=== PATIENT | male | born 1990 | race Caucasian/White ===

== ENCOUNTER 2017-01-29 17:05 | Inpatient (IN) | payer BC, OTHER ==
[~2017-01-29] VITALS: Ht 175.3 cm; Wt 74.4 kg
[2017-01-30 01:30] LABS: *AMPHETAMINE, URINE NEGATIVE (NEGATIVE); *BARBITURATE, URINE NEGATIVE (NEGATIVE); *CANNABINOID, URINE POSITIVE (NEGATIVE); *COCCAINE, URINE POSITIVE (NEGATIVE); *OPIATE, URINE POSITIVE (NEGATIVE); *PHENCYCLIDINE SCREEN,URINE NEGATIVE (NEGATIVE)
--- NOTE | 2017-01-30 01:45 | NUR ---
ADMISSION NOTE Pt arrived ambulatory to the [facility] third floor (accompanied by [facility] staff) on 01/30/17 at approximately 0058. Pt is a 26 y/o male being admitted for Benzodiazepine, Opiate, ETOH, and Marijuana dependence and use. Pt is a/o x 4 with no changes in LOC. Pt reported having NKA. Pt weighs 164 pounds and stands at 5 feet 9 inches. Pt denies having any past medical history. Pt reported having a primary care physician by the name Dr. Mohan but denies having a psych doctor. Pt reported he's been using Heroin for the past 6 years; and he currently uses about 1 gram every day. Last dose of Heroin was last night ( 01/29/17) and pt reported using 0.75 gram (IV). Pt has been drinking heavily for an unknown time and stated " I usually drink a few cups of whiskey, but that's not everyday. Some days it could be more or less. I've been drinking a lot more this run which has been for about 3 months." Pt consumed 1 cup of whiskey yesterday (01/29/17). Pt has been occasionally using Xanax for the past few weeks. Pt stated " I don't really use them. Through out this entire time, I've probably had 6 mg. I had 1 mg last night (01/29/17). Pt stated " I smoke marijuana here and there, but not everyday. I smoke like 1 gram on the days I do smoke. I smoked a joint before coming here." Pt didn't arrive with any medications. Pt reported being to multiple treatment centers. His most recent was at a sober living about 9 months ago. Pt smokes about 1 and a half packs of cigarettes a day. Upon assessment pt is mildly intoxicated, but coherent, friendly, and cooperative. Pt's breathing is even and unlabored. No SOB noted or reported. Pt's skin is dry and intact. Vital signs upon preadmission: BP: 130/76 HR:68 T:97.9 R:18 Oxygen Saturation: 96% Pain: 0/10 COW:3 and CIWA: 3. Pt encouraged to notify staff of any changes in condition or of any concerns. Pt verbalized an understanding. Will continue to monitor.
[2017-01-30] MEDS ORDERED: IBUPROFEN 400 MG TABLET PO PRN (02:00)
[2017-01-30] MEDS ORDERED: DIAZEPAM 10 MG TABLET PO PRN ×2 (02:00)
[2017-01-30] MEDS ORDERED: diphenhydrAMINE 50 MG CAPSULE PO PRN (02:00)
[2017-01-30] MEDS ORDERED: LOPERAMIDE HCL 2 MG CAPSULE PO PRN ×2 (02:00)
[2017-01-30] MEDS ORDERED: DIAZEPAM 5 MG TABLET PO PRN (02:00)
[2017-01-30] MEDS ORDERED: ONDANSETRON ODT 4 MG TAB.RAPDIS SL PRN (02:00)
[2017-01-30] MEDS ORDERED: MAG HYDROX/AL HYDROX/SIMETH 30 ML LIQUID UDC PO PRN (02:00)
[2017-01-30] MEDS ORDERED: MIRALAX 17 GM POWD.PACK PO PRN (02:00)
[2017-01-30] MEDS ORDERED: MAGNESIUM HYDROXIDE 30 ML LIQUID UDC PO PRN (02:00)
[2017-01-30] MEDS ORDERED: ACETAMINOPHEN 325 MG TABLET PO PRN (02:00)
[2017-01-30] MEDS ORDERED: LORAZEPAM 2 MG/1 ML VIAL IM PRN (02:00)
[2017-01-30] MEDS ORDERED: ONDANSETRON 4 MG/2 ML VIAL IM PRN (02:00)
[2017-01-30] MEDS ORDERED: DICYCLOMINE HCL 20 MG TABLET PO PRN (02:00)
[2017-01-30] MEDS ORDERED: BUPRENORPHINE HCL 2 MG TAB.SUBL SL PRN (02:00)
[2017-01-30 04:00] VITALS: BP 105/88
--- NOTE | 2017-01-30 07:08 | NUR ---
END OF SHIFT NOTE Pt is a 26 y/o male admitted for Heroin, ETOH, Xanax, and Marijuana use and dependence. Pt has NKA and denies any PMH. Pt is not on a taper at this time but has PRN medications available for any discomfort. Pt didn't receive any PRNS during the shift. Last COW:1 and CIWA:0 (0400). Pt slept for a total of 5 hours. Pt is currently sleeping in bed with no signs of discomfort/distress noted. Breathing is even and unlabored. All safety measures in place. Endorsed to the oncoming nurse.
[2017-01-30 07:18] LABS: BASOPHILS # (AUTO) 0.1 K/uL (0.0-8.0); BASOPHILS % (AUTO) 0.7 % (0.0-2.0); EOSINOPHILS # (AUTO) 0.2 K/uL (0.0-0.7); EOSINOPHILS % (AUTO) 2.4 % (0.0-7.0); HEMATOCRIT 39.9 % (36.7-47.1); HEMOGLOBIN 13.4 g/dL (12.5-16.3); LYMPHOCYTES % (AUTO) 26.7 % (20.5-51.5); MEAN CORPUSCULAR HEMOGLOBIN 28.5 uug (23.8-33.4); MEAN CORPUSCULAR HGB CONC 34 g/dL (32.5-36.3); MONOCYTES # (AUTO) 0.5 K/uL (2.0-10.0); MONOCYTES % (AUTO) 6.2 % (0.0-11.0); NEUTROPHILS # (AUTO) 4.9 K/uL (1.8-8.9); PLATELET COUNT (AUTO) 319 K/uL (152-348); WHITE BLOOD COUNT (AUTO) 7.7 K/uL (3.6-10.2)
--- NOTE | 2017-01-30 07:30 | NUR ---
Start of shift note; Received report from night nurse. Patient is AOX4. Patient is a 26 year old male admitted on 01/30/17 for Opiate/ETOH dependence. Patient denies any past medical history. NKA, full code status and on a regular diet. Patient denies pain , Nausea at this time. Patient is cooperative. Patient to be evaluated by MD during MD rounds. All safety measures secured. Will continue to monitor patient.
[2017-01-30 07:32] LABS: ETHANOL < 3 MG/DL (0-0)
[2017-01-30 07:39] LABS: ALANINE AMINOTRANSFERASE 32 U/L (16-63); ALBUMIN 3.7 g/dL (3.4-5.0); ALKALINE PHOSPHATASE 53 U/L (50-136); AMYLASE 54 U/L (25-115); ASPARTATE AMINOTRANSFERASE 22 U/L (15-37); BILIRUBIN,TOTAL 0.4 mg/dL (0.2-1.0); CALCIUM 9.3 mg/dL (8.5-10.1); CHLORIDE 100 mmol/L (98-107); CREATININE 1.2 mg/dL (0.6-1.3); GFR 73 mL/min (>60); GLUCOSE 106 mg/dL (74-106); LIPASE 203 U/L (73-393); MAGNESIUM 2.2 mg/dL (1.8-2.4); POTASSIUM 4.5 mmol/L (3.5-5.1); SODIUM SERUM 139 mmol/L (136-145); TOTAL PROTEIN, SERUM 7.5 g/dL (6.4-8.2); UREA NITROGEN, BLOOD 11 mg/dL (7-18)
[2017-01-30 07:41] LABS: CARBON DIOXIDE 37 mmol/L (21-32)
[2017-01-30 07:47] LABS: HIV-1 p24 ANTIGEN NON REACTIVE (NONREACTIVE); HIV-1/2 ANTIBODY NON REACTIVE (NONREACTIVE)
[2017-01-30 08:00] VITALS: BP 127/78
[2017-01-30] MEDS: MULTIVITAMINS,THERAPEUTIC TABLET PO SCH (08:52)
[2017-01-30] MEDS ORDERED: THIAMINE HCL 200 MG/2 ML VIAL IM ONE (09:00)
[2017-01-30] MEDS ORDERED: TUBERCULIN,PURIF.PROT.DERIV. 5 TU/0.1 ML TEST ID ONE (09:00)
[2017-01-30] MEDS ORDERED: LORAZEPAM 1 MG TABLET PO PRN ×2 (11:30)
[2017-01-30 12:00] VITALS: BP 121/66
[2017-01-30] MEDS: GABAPENTIN 300 MG CAPSULE PO SCH ×2 (14:31→21:17)
[2017-01-30 16:00] VITALS: BP 127/70
--- NOTE | 2017-01-30 18:25 | NUR ---
End of shift note Patient is AOX4. Patient is a 26 year old male admitted on 01/30/17 for Opiate/ETOH dependence. Patient denies any past medical history. NKA, full code status and on a regular diet. Patient denies pain , Nausea at this time. Patient to start Ativan and Subutex taper tomorrow 01/31/17 per MD order. All safety measures secured. Patient remained compliant with treatment plan. Met all needs .
--- NOTE | 2017-01-30 19:15 | NUR ---
START OF SHIFT Received 26 year old male patient admitted on 01/30/17 for Xanax, ETOH, Heroin and Marijuana dependency. Pt is full code with NKA. He denies any PMHx. He reports using Xanax 1 mg occasionally for a few weeks. Last dose was 1 mg on 01/29/17. ETOH (whiskey) " a few cups a day". Last dose shyann 240 mL on 01/29/17. Heroin IV 1 gram daily for 3 months. Last dose was 0.75 gram on 01/29/17. And Marijuana 1 gram occasionally for 3 months. Last dose was 1 joint on 01/29/17. Pt denies history of seizure. He is to start a 5 day Ativan and 5 day Subutex taper on 01/31/17. Per endorsement, pt did not receive or request PRN medications. Pt is alert and oriented x4, breathing is even and unlabored. Pt safe with bed locked in lowest position, side rails up x2 and call light within reach. Will continue to monitor.
[2017-01-30 20:00] VITALS: BP 123/68
--- NOTE | 2017-01-30 21:34 | NUR ---
PRN ATIVAN/SUBUTEX Pt complains of chills/sweats, restless legs, and body aches. Pt observed with piloerection, and anxiety/agitation. PRN Subutex 4 mg and Ativan 1 mg administered as ordered for COWS:12 and CIWA:9. Breathing is even and unlabored. Safety measures in place. Will monitor effectiveness of medications.
--- NOTE | 2017-01-30 22:34 | NUR ---
PRN ATIVAN/SUBUTEX REASSESSMENT Pt reports PRN medication effective. Noted with decreased restlessness, anxiety and agitation. COWS:6, CIWA:6. Breathing even and unlabored, safety measures in place. Will monitor.
[2017-01-31] VITALS: BP 109/59
--- NOTE | 2017-01-31 | NUR ---
COWS/CIWA DEFERRED COWS and CIWA deferred d/t pt lying in bed with eyes closed and is asleep. Breathing even and unlabored, respirations 14. Safety measures in place. Will monitor.
[2017-01-31 04:00] VITALS: BP 110/56
--- NOTE | 2017-01-31 04:00 | NUR ---
COWS/CIWA DEFERRED COWS and CIWA deferred d/t pt lying in bed with eyes closed and is asleep. Breathing even and unlabored, respirations 16. Safety measures in place. Will continue to monitor.
--- NOTE | 2017-01-31 07:12 | NUR ---
END OF SHIFT Pt is a 26 year old male patient admitted on 01/30/17 for Xanax, ETOH, Heroin and Marijuana dependency. Pt is full code with NKA. He denies any PMHx. He is to start a 5 day Ativan and 5 day Subutex taper today( 01/31/17). At 2134 he received PRN Ativan and Subutex for COWS of 12, and CIWA 9. PRN medications were effective in relieving his withdrawal symptoms as evidenced by decrease in COWS and CIWA score. He slept a total of 10hrs, Intake: 1355 mL Void:x3 BM:0 COWS:6, CIWA:6. Pt is alert and oriented x4, breathing is even and unlabored. Pt safe with bed locked in lowest position, side rails up x2 and call light within reach. Endorsed to oncoming shift.
--- NOTE | 2017-01-31 07:30 | NUR ---
Start of shift note; Received report from night nurse. Patient is AOX4. Patient is a 26 year old male admitted on 01/30/17 for Opiate/ETOH dependence. Patient denies any past medical history. NKA, full code status and on a regular diet. Patient is cooperative. Patient was placed on a 5 day Ativan and 5 day Subutex taper to start today. Upon initial assessment, patient noted to be anxious/agitated, palms moist with flushed face, slight tremors noted, patient is complaining of muscle aches and stomach cramps. Educated patient regarding the importance of compliance to treatment plan to reduce withdrawal symptoms, patient verbalized understanding. All safety measures secured. Will continue to monitor patient.
[2017-01-31 08:00] VITALS: BP 128/66
[2017-01-31] MEDS: LORAZEPAM 1 MG TABLET PO SCH ×4 (08:41→22:05)
[2017-01-31] MEDS: GABAPENTIN 300 MG CAPSULE PO SCH ×3 (08:41→22:05)
[2017-01-31] MEDS: BUPRENORPHINE HCL 2 MG TAB.SUBL SL SCH ×4 (08:41→22:05)
[2017-01-31] MEDS: MULTIVITAMINS,THERAPEUTIC TABLET PO SCH (08:41)
[2017-01-31] MEDS: THIAMINE HCL 100 MG TABLET PO SCH (08:41)
[2017-01-31] MEDS ORDERED: 5 DAY TAPER BUPRENORPHINE -SERENITY PROTOCOL SL PRN (09:00)
[2017-01-31] MEDS ORDERED: 5 DAY TAPER OF LORAZEPAM -SERENITY PROTOCOL PO PRN (09:00)
--- NOTE | 2017-01-31 11:00 | NUR ---
Patient communication; Patient's urine drug screen came back positive for Cocaine. Patient admitted using Cocaine prior to admission, with unknown amount one time use only.
[2017-01-31 12:00] VITALS: BP 124/75
[2017-01-31 14:07] LABS: HCV AB <0.1 s/co ratio (0.0-0.9); HEPATITIS B CORE AB, IgM Negative (Negative); HEPATITIS B SURFACE AG Negative (Negative)
[2017-01-31 16:00] VITALS: BP 108/68
--- NOTE | 2017-01-31 18:28 | NUR ---
End of shift note Patient is AOX4. Patient is a 26 year old male admitted on 01/30/17 for Opiate/ETOH dependence. Patient denies any past medical history. NKA, full code status and on a regular diet. Patient denies pain , Nausea at this time. Patient was started on a 5 day Ativan and 5 day Subutex taper, no adverse reactions noted. All safety measures secured. Patient remained compliant with treatment plan. Met all needs .
--- NOTE | 2017-01-31 19:15 | NUR ---
START OF SHIFT Received 26 year old male patient admitted on 01/30/17 for Xanax, ETOH, Heroin and Marijuana dependency. Pt is full code with NKA. He denies any PMHx. He reports using Xanax 1 mg occasionally for a few weeks. Last dose was 1 mg on 01/29/17. ETOH (whiskey) " a few cups a day". Last dose was 240 mL on 01/29/17. Heroin IV 1 gram daily for 3 months. Last dose was 0.75 gram on 01/29/17. And Marijuana 1 gram occasionally for 3 months. Last dose was 1 joint on 01/29/17. Pt denies history of seizure. He is placed on 5 day Ativan and 5 day Subutex taper started today and tolerating well. Per endorsement, pt did not receive or request PRN medications. Pt is alert and oriented x4, breathing is even and unlabored. Pt safe with bed locked in lowest position, side rails up x2 and call light within reach. Will continue to monitor.
[2017-01-31 20:00] VITALS: BP 126/65
[2017-02-01] VITALS: BP 115/79
--- NOTE | 2017-02-01 | NUR ---
COWS/CIWA DEFERRED COWS and CIWA deferred d/t pt lying in bed with eyes closed and is asleep. Breathing even and unlabored, respirations 14. Safety measures in place. Will continue to monitor.
[2017-02-01 04:00] VITALS: BP 121/70
--- NOTE | 2017-02-01 04:00 | NUR ---
COWS/CIWA DEFERRED COWS and CIWA deferred d/t pt lying in bed with eyes closed and is asleep. Breathing even and unlabored. Safety measures in place. Will continue to monitor.
--- NOTE | 2017-02-01 07:09 | NUR ---
END OF SHIFT Pt is a 26 year old male patient admitted on 01/30/17 for Xanax, ETOH, Heroin and Marijuana dependency. Pt is full code with NKA. He denies any PMHx. He is placed on 5 day Ativan and 5 day Subutex taper and tolerating well. He did not receive or request PRN medications. He slept a total of 6 hrs, Intake: 1210 mL, Void: x2, BM: 0, COWS:7, CIWA:5. Pt is alert and oriented x4, breathing is even and unlabored. Pt safe with bed locked in lowest position, side rails up x2 and call light within reach. Endorsed to oncoming shift.
--- NOTE | 2017-02-01 07:15 | NUR ---
Start of shift note Pt was admitted for benzo, ETOH and opiate dependence. Pt denies any PMHx. Pt is on day 2 of his 5 day ativan and 5 day subutex taper. Pt is tolerating well without any ASE. Pt has NKA, is full code and on a regular diet. Pt is currently sleeping in his bed, pt has no complaints at this time and requests to continue sleeping. Bed is locked in a low position, call light within reach, side rails up x 2. Will continue to monitor pt. All needs addressed at this time.
[2017-02-01 08:00] VITALS: BP 126/71
[2017-02-01] MEDS: GABAPENTIN 300 MG CAPSULE PO SCH ×3 (09:05→20:27)
[2017-02-01] MEDS: MULTIVITAMINS,THERAPEUTIC TABLET PO SCH (09:05)
[2017-02-01] MEDS: THIAMINE HCL 100 MG TABLET PO SCH (09:05)
[2017-02-01] MEDS: LORAZEPAM 1 MG TABLET PO SCH ×3 (09:06→20:28)
[2017-02-01] MEDS: BUPRENORPHINE HCL 2 MG TAB.SUBL SL SCH ×3 (09:06→20:28)
[2017-02-01 12:00] VITALS: BP 148/76
[2017-02-01 16:00] VITALS: BP 125/79
--- NOTE | 2017-02-01 19:28 | NUR ---
End of shift note Pt was admitted for benzo, ETOH and opiate dependence. Pt denies any PMHx. Pt is on day 2 of his 5 day ativan and 5 day subutex taper. Pt is tolerating well without any ASE. Pt has NKA, is full code and on a regular diet. Pt has a recent COWS of 3 and a CIWA of 2 at 1600. Pt attempted to participate in groups and activities during the shift. Pt has no complaints at this time. All needs addressed. SBAR report given to oncoming shift.
[2017-02-01 20:00] VITALS: BP 130/74
--- NOTE | 2017-02-01 20:00 | NUR ---
Start of Shift Patient is a 26-year old, male, admitted for Xanax, ETOH, Heroin and Marijuana dependency. Pt with NKA, is Full Code and on Regular Diet. He denies any PMHx. Pt denies history of seizure. He is placed on 5-day Ativan and 5-day Subutex tapers, started 01/31/2017, and tolerating well. Pt is AAOx4, no anxiety nor SOB noted at this time. Pt is ambulatory with steady gait. No open skin noted. Fall, universal and safety prec in place. Call light within reach. Kept pt warm, dry and comfortable. All needs met. Latest COWS=3, CIWA=2. Will continue to monitor pt.
[2017-02-01] MEDS: HYDROXYZINE PAMOATE 25 MG CAPSULE PO PRN (23:40)
[2017-02-01] MEDS: METHOCARBAMOL 750 MG TABLET PO PRN (23:40)
--- NOTE | 2017-02-01 23:41 | NUR ---
RN note PRN Robaxin and Vistaril Pt c/o generalized muscle pain=6/10 and feeling anxious. Administered Robaxin 750 mg PO and Vistaril 50 mg PO as ordered. Will monitor and reassess.
[2017-02-02] VITALS: BP 122/71
--- NOTE | 2017-02-02 00:45 | NUR ---
RN note reassess Pt asleep on bed, no SOB nor facial grimacing noted.
[2017-02-02 04:00] VITALS: BP 125/70
--- NOTE | 2017-02-02 07:07 | NUR ---
End of Shift Patient is a 26-year old, male, admitted for Xanax, ETOH, Heroin and Marijuana dependency. Pt with NKA, is Full Code and on Regular Diet. He denies any PMHx. Pt denies history of seizure. He is placed on 5-day Ativan and 5-day Subutex tapers, started 01/31/2017, and tolerating well. Pt is AAOx4, no anxiety nor SOB noted at this time. Pt is ambulatory with steady gait. No open skin noted. Fall, universal and safety prec in place. Call light within reach. Kept pt warm, dry and comfortable. All needs met. Latest COWS=2, CIWA=1, slept for 5 hours. Endorsed to AM shift nurse for continuity of care.
--- NOTE | 2017-02-02 07:10 | NUR ---
Start of shift note Pt was admitted for benzo, ETOH and opiate dependence. Pt denies any PMHx. Pt has NKA, is full code and on a regular diet. Pt is on day 3 of his 5 day ativan and 5 day subutex taper. Pt is tolerating well without any ASE, however, per report pt had two PRN medications overnight to manage the s/s of his withdrawal s/s. Pt is currently resting in bed, no complaints at this time. Will continue to monitor pt. All needs addressed at this time.
[2017-02-02 08:00] VITALS: BP 113/64
[2017-02-02] MEDS ORDERED: BUPRENORPHINE HCL 2 MG TAB.SUBL SL SCH (09:00)
[2017-02-02] MEDS: GABAPENTIN 300 MG CAPSULE PO SCH ×3 (09:47→21:10)
[2017-02-02] MEDS: THIAMINE HCL 100 MG TABLET PO SCH (09:47)
[2017-02-02] MEDS: LORAZEPAM 1 MG TABLET PO SCH ×4 (09:47→21:10)
[2017-02-02] MEDS: MULTIVITAMINS,THERAPEUTIC TABLET PO SCH (09:47)
[2017-02-02 12:00] VITALS: BP 143/86
--- NOTE | 2017-02-02 13:57 | NUR ---
PRN administration Pt c/o constipation, pt requested miralax given per MD order.
[2017-02-02] MEDS: BUPRENORPHINE HCL 2 MG TAB.SUBL SL SCH ×2 (14:00→21:10)
[2017-02-02] MEDS ORDERED: MIRALAX 17 GM POWD.PACK PO PRN (14:15)
--- NOTE | 2017-02-02 14:57 | NUR ---
Reassessment Pt states that he has not had a BM. Medication can take longer to become effective, fluids and ambulation encouraged. Pt is scheduled to have more medications tonight to assist with his constipation. Pt has no further complaints at this time. Will continue to monitor pt.
[2017-02-02 16:00] VITALS: BP 135/90
--- NOTE | 2017-02-02 19:11 | NUR ---
End of shift note Pt was admitted for benzo, ETOH and opiate dependence. Pt denies any PMHx. Pt has NKA, is full code and on a regular diet. Pt is on day 3 of his 5 day ativan and 5 day subutex taper. Pt is tolerating well without any ASE. Pt had miralax PRN for his constipation and education regarding constipation management. Pt has medications scheduled at 2100 to help mange his constipation. Pt ate 100% of his meals, drank 2447ml of fluids and had 6 urines throughout the shift. Pt has no further complaints at this time. All needs addressed. SBAR report to be given to oncoming shift.
--- NOTE | 2017-02-02 19:15 | NUR ---
Start of Shift Note: Patient is a 26 y/o male admitted on 01/30/17 for Opiate, & ETOH dependence. Patient denies any past medical history. Patient is on a regular diet with no known food and drug allergies. Full Code status. Seizure and Fall precaution. Patient is on a 5-day Ativan & Subutex taper and tolerating well. Skin intact. Last COWS is 3 CIWA 1. Patient was given PRN Miralax during day shift. Will continue to monitor for bowel movement. Patient is alert & oriented x4. No shortness of breath noted. Respiration even & unlabored. Abdomen soft & non-distended. No nausea noted. Patient complains of stomach cramps & constipation. Patient appears anxious and slightly agitated. No headache noted. Patient denies hallucinations. Safety precautions are in place. Bed locked in lowest position. Both side rails up. Call light within pts reach. Will continue to monitor patient.
[2017-02-02 20:00] VITALS: BP 141/89
[2017-02-02] MEDS: SENNOSIDES 1 TABLET PO SCH (21:09)
[2017-02-02] MEDS: HYDROXYZINE PAMOATE 25 MG CAPSULE PO PRN (22:43)
[2017-02-02] MEDS: METHOCARBAMOL 750 MG TABLET PO PRN (22:43)
--- NOTE | 2017-02-02 22:43 | NUR ---
PRN Robaxin Patient complains of 5/10 body aches and anxiety. Patient awake in bed and noted to be restless. PRN Robaxin & Vistaril administered as ordered. Will reassess in 1 hour. Will continue to monitor.
--- NOTE | 2017-02-02 23:43 | NUR ---
PRN Reassessment Patient verbalized decreased in anxiety and relief from body aches. Patient lying in bed and appears comfortable. No s/s of distress noted. Safety precautions are in place. Will continue to monitor patient.
[2017-02-03] VITALS: BP 128/87
[2017-02-03 04:00] VITALS: BP 125/76
--- NOTE | 2017-02-03 07:00 | NUR ---
Start of Shift Endorsement received from nightshift nurse. Pt is a 26 y/o male admitted for Heroin, Xanax and alcohol dependence. Pt has been placed on a 5 day Ativan and 5 day Subutex taper that begun on 01/31/17. Pt is tolerating the taper, he is mildly withdrawing at this time AEB COWS 3, CIWA 2 at 1999. Pt received PRN Miralax, Robaxin and Vistaril for withdrawal symptoms. Pt reports sleeping 7 hours. Pt had a debridement performed on a abscess on his left arm. Wound care will be performed during day shift. VS WNL. Full Code. PT is alert and oriented x4. Pt is in STABLE condition at this time. Remains compliant with medication and diet regimen. All needs have been met, All safety measures in place per hospital policy. Bed in lowest position, side rails up x2, call-light within reach. Will continue to monitor Addendum: 02/03/17 at 1810 by SHRUTHI ALVARADO RN Correction: no wound debridement was performed on this pt.
--- NOTE | 2017-02-03 07:23 | NUR ---
End of Shift Note: Patient is a 26 y/o male admitted on 01/30/17 for Opiate, & ETOH dependence. Patient denies any past medical history. Patient is on a regular diet with no known food and drug allergies. Full Code status. Seizure and Fall precaution. Patient is on a 5-day Ativan & Subutex taper and tolerating well. Skin intact. Last COWS is 3 CIWA 2. Pt received Miralax, Robaxin & Vistaril for constipation and was effective. Pt remained stable and vitals remains WNL. Pt is compliant with therapeutic plan. Pt slept for a total of 7 hours. Pt consumed 1027ml of fluids. Voided 3x with 1x bowel movement. All needs attended & met. Safety precautions are in place. Will endorse to day shift nurse.
[2017-02-03 08:00] VITALS: BP 115/70
[2017-02-03] MEDS: MULTIVITAMINS,THERAPEUTIC TABLET PO SCH (08:14)
[2017-02-03] MEDS: LORAZEPAM 1 MG TABLET PO SCH ×3 (08:14→20:28)
[2017-02-03] MEDS: GABAPENTIN 300 MG CAPSULE PO SCH ×3 (08:14→20:28)
[2017-02-03] MEDS: THIAMINE HCL 100 MG TABLET PO SCH (08:14)
[2017-02-03] MEDS: BUPRENORPHINE HCL 2 MG TAB.SUBL SL SCH ×3 (08:14→20:29)
[2017-02-03 12:00] VITALS: BP 110/71
[2017-02-03 16:00] VITALS: BP 134/78
--- NOTE | 2017-02-03 19:15 | NUR ---
START OF SHIFT Received 26 year old male patient admitted on 01/30/17 for Xanax, ETOH, heroin and marijuana dependency. Pt is full code with NKA. He denies any PMHx. Pt placed on 5 day Ativan and 5 day Subutex taper started on 01/31/17 and tolerating well. Per endorsement, pt did not receive or request PRN medication. Pt is alert and oriented x4, breathing is even and unlabored. Pt safe with bed locked in lowest position, side rails up x2 and call light within reach. Will continue to monitor.
--- NOTE | 2017-02-03 19:36 | NUR ---
End of Shift Endorsement given to nightshift nurse. Pt is a 26 y/o male admitted for Heroin, Xanax and alcohol dependence. Pt has been placed on a 5 day Ativan and 5 day Subutex taper that begun on 01/31/17. Pt is tolerating the taper, he is mildly withdrawing at this time AEB COWS 2, CIWA 1 at 1600. Pt did not receive any prn medications. Reports readiness for discharge, educated pt in deep breathing technique to help relieve mild to moderate anxiety. Intake: 2710ml, Void x6, BM x2. VS WNL. Full Code. PT is alert and oriented x4. Pt is in STABLE condition at this time. Remains compliant with medication and diet regimen. All needs have been met, All safety measures in place per hospital policy. Bed in lowest position, side rails up x2, call-light within reach. Will continue to monitor
[2017-02-03 20:00] VITALS: BP 139/89
[2017-02-03] MEDS: SENNOSIDES 1 TABLET PO SCH (20:28)
[2017-02-03] MEDS: METHOCARBAMOL 750 MG TABLET PO PRN (23:43)
[2017-02-03] MEDS: HYDROXYZINE PAMOATE 25 MG CAPSULE PO PRN (23:43)
--- NOTE | 2017-02-03 23:43 | NUR ---
PRN ROBAXIN/VISTARIL Pt complains of body aches 5/10 and anxiety. PRN Vistaril and Robaxin administered as ordered. Breathing is even and unlabored, safety measures in place. Will monitor effectiveness of medications.
[2017-02-04] VITALS: BP 134/86
--- NOTE | 2017-02-04 00:43 | NUR ---
PRN ROBAXIN/VISTARIL REASSESSMENT PRN medications effective. Pt lying in bed with eyes closed noted to be asleep. Respirations 16, breathing is even and unlabored. No facial grimacing noted. Safety measures in place. Will continue to monitor.
--- NOTE | 2017-02-04 04:00 | NUR ---
VITALS/COWS/CIWA 0400 vitals refused by pt. Risks and benefits explained x3. Pt still refused. COWS and CIWA deferred d/t pt lying in bed with eyes closed and is asleep. Respirations 16. Breathing even and unlabored. Safety measures in place. Will monitor.
--- NOTE | 2017-02-04 07:21 | NUR ---
END OF SHIFT Pt is a 26 year old male patient admitted on 01/30/17 for Xanax, ETOH, heroin and marijuana dependency. Pt is full code with NKA. Pt continues on 5 day Ativan and 5 day Subutex taper started on 01/31/17 and tolerating well. He complained of withdrawal symptoms such as anxiety, body aches and restless legs. At 2343 he received PRN Robaxin and Vistaril. He slept a total of 6 hrs, Intake: 1200 mL, Void: x3, BM: 0. COWS:3, CIWA:1. Pt is alert and oriented x4, breathing is even and unlabored. Pt safe with bed locked in lowest position, side rails up x2 and call light within reach. Endorsed to oncoming nurse.
--- NOTE | 2017-02-04 07:56 | NUR ---
START OF SHIFT Received report from proposal engineer nurse. 26 year old male patient admitted on 01/30/17 for xanax, ETOH, heroin and marijuana withdrawals. Pt is full code with NKA, follows a regular diet. Denies medical or psychiatric hx. Pt placed on 5 day Ativan and 5 day Subutex taper started on 01/31/17 and tolerating well. S/S of withdrawal are being managed with ordered medications. PRN Robaxin and Vistaril were administered at night and effective. Most recent COWS are 3 and CIWA is 1. Pt is alert and oriented x4, breathing is even and unlabored. Safety precautions are in place. V/S remain WNL. Will continue to monitor.
[2017-02-04 08:03] VITALS: BP 115/67
[2017-02-04] MEDS ORDERED: BUPRENORPHINE HCL 2 MG TAB.SUBL SL SCH (09:00)
[2017-02-04] MEDS: THIAMINE HCL 100 MG TABLET PO SCH (09:32)
[2017-02-04] MEDS: LORAZEPAM 1 MG TABLET PO SCH ×2 (09:32→20:18)
[2017-02-04] MEDS: MULTIVITAMINS,THERAPEUTIC TABLET PO SCH (09:32)
[2017-02-04] MEDS: GABAPENTIN 300 MG CAPSULE PO SCH ×3 (09:32→20:18)
[2017-02-04 12:00] VITALS: BP 102/66
[2017-02-04 17:51] VITALS: BP 136/88
--- NOTE | 2017-02-04 19:05 | NUR ---
END OF SHIFT Endorsed to retail shift supervisor nurse. 26 year old male patient admitted on 01/30/17 for xanax, ETOH, heroin and marijuana withdrawals. Pt is full code with NKA, follows a regular diet. Denies medical or psychiatric hx, reports hypertension related to withdrawals. Pt placed on 5 day Ativan and 5 day Subutex taper started on 01/31/17 and tolerating well. S/S of withdrawal are being managed with ordered medications. No PRN medications needed or administered throughout day. Most recent COWS are 5 and CIWA is 5. Pt is alert and oriented x4, breathing is even and unlabored. Safety precautions are in place. Pt attends groups and activities, eats 100% of meals. V/S remain WNL. shift production associate nurse will continue to monitor. Addendum: 02/04/17 at 1914 by YOMI PACHECO RN PT DOES NOT HAVE HTN RELATED TO WITHDRAWALS; INCORRECT PATIENT.
[2017-02-04 20:00] VITALS: BP 131/88
--- NOTE | 2017-02-04 20:00 | NUR ---
Start of Shift Patient is a 26-year old, male, admitted for Xanax, ETOH, Heroin and Marijuana dependency. Pt with NKA, is Full Code and on Regular Diet. He denies any PMHx. Pt denies history of seizure. He is placed on 5-day Ativan and 5-day Subutex tapers, started 01/31/2017, and tolerating well. Pt is AAOx4, no anxiety nor SOB noted at this time. Pt is ambulatory with steady gait. No open skin noted. Fall, universal and safety prec in place. Call light within reach. Kept pt warm, dry and comfortable. All needs met. Latest COWS=3, CIWA=1. Will continue to monitor pt.
[2017-02-04] MEDS: SENNOSIDES 1 TABLET PO SCH (20:18)
[2017-02-04] MEDS: METHOCARBAMOL 750 MG TABLET PO PRN (22:29)
[2017-02-04] MEDS: HYDROXYZINE PAMOATE 25 MG CAPSULE PO PRN (22:29)
--- NOTE | 2017-02-04 23:40 | NUR ---
RN note reassess Pt asleep on bed, with no SOB nor facial grimacing noted. PRN meds effective.
[2017-02-05] VITALS: BP 128/79
[2017-02-05 04:00] VITALS: BP 130/72
--- NOTE | 2017-02-05 07:30 | NUR ---
START OF SHIFT Received report from table games shift manager nurse. 26 year old male patient admitted on 01/30/17 for Xanax, ETOH, heroin and marijuana dependence. Completed a 5 day Ativan and 5 day Subutex taper. Pt is alert and oriented X4. Color good, skin warm and dry. Respirations even and unlabored. Safety precautions observed. Call light within reach.
[2017-02-05 09:30] VITALS: BP 104/62
[2017-02-05] MEDS: THIAMINE HCL 100 MG TABLET PO SCH (09:35)
[2017-02-05] MEDS: MULTIVITAMINS,THERAPEUTIC TABLET PO SCH (09:35)
[2017-02-05] MEDS: GABAPENTIN 300 MG CAPSULE PO SCH ×3 (09:35→20:44)
[2017-02-05] MEDS ORDERED: POLY17PO4 PO (11:11)
[2017-02-05] MEDS ORDERED: HYDR-3895 PO (11:11)
[2017-02-05] MEDS ORDERED: Sennosides PO (11:11)
[2017-02-05] MEDS ORDERED: Gabapentin PO (11:11)
[2017-02-05] MEDS: METHOCARBAMOL 750 MG TABLET PO PRN ×2 (11:18→20:44)
[2017-02-05] MEDS: CLONIDINE HCL 0.1 MG TABLET PO PRN ×2 (11:18→18:13)
[2017-02-05] MEDS: HYDROXYZINE PAMOATE 25 MG CAPSULE PO PRN ×2 (11:18→18:12)
--- NOTE | 2017-02-05 11:25 | NUR ---
PRN ADMINISTRATION: pt with complaints of body aches and verbalized anxiety, pt states he can not stay still and is anxious D/T traying to plan discharge plans and location. pt received robaxin, vistaril and clonidine.
--- NOTE | 2017-02-05 12:00 | NUR ---
PRN RE-ASSESSMENT: PT STATES THAT ROBAXIN AND VISTARIL WERE EFFECTIVE PAIN SCALE 1/10 AND ANXIETY LEVEL HAS DECREASED.
[2017-02-05 13:42] VITALS: BP 127/60
--- NOTE | 2017-02-05 16:00 | NUR ---
PRN ADMINISTRATION: PT RECEIVED CLONIDINE AND VISTARIL FOR ANXIETY PTS B/P IS SLIGHTLY ELEVATED AND PATIENT IS UN ABLE TO STAY STILL. WILL RE-ASSESS PT IF MEDICATION IS EFFECTIVE. Addendum: 02/05/17 at 1926 by MARISSA PETERS RN PRN ADMINISTRATION WAS GIVEN AT 1813, ERROR AT TIME GIVEN
[2017-02-05 17:32] LABS: *AMPHETAMINE, URINE NEGATIVE (NEGATIVE); *BARBITURATE, URINE NEGATIVE (NEGATIVE); *CANNABINOID, URINE NEGATIVE (NEGATIVE); *COCCAINE, URINE NEGATIVE (NEGATIVE); *OPIATE, URINE NEGATIVE (NEGATIVE); *PHENCYCLIDINE SCREEN,URINE NEGATIVE (NEGATIVE)
[2017-02-05 17:42] VITALS: BP 132/79
--- NOTE | 2017-02-05 19:26 | NUR ---
END OF SHIFT NOTE: PT IS ALERT AND ORIENTED, PT WITH EPISODES OF INCREASED ANXIETY THROUGHOUT THE SHIFT. PT IS ADMITTED TO [facility] OPIATE/BENZO/ETOH WITHDRAWAL/DEPENDENCE. PT COMPLETED TAPER NO A/R NOTED. PT IS SET TO DISCHARGE TOMORROW. PT HAS PROVIDED URINE DRUG SCREEN LAST [facility] BLUFFS 3 COWS 1. WILL ENDORSE PT TO INDEPENDENT DRIVER NURSE
[2017-02-05 20:00] VITALS: BP 133/82
--- NOTE | 2017-02-05 20:00 | NUR ---
Start of Shift Patient is a 26-year old, male, admitted for Xanax, ETOH, Heroin and Marijuana dependency. Pt with NKA, is Full Code and on Regular Diet. He denies any PMHx. Pt denies history of seizure. He is placed on 5-day Ativan and 5-day Subutex tapers, started 01/31/2017, and finished, with no adverse side effects noted. Pt is AAOx4, no anxiety nor SOB noted at this time. Pt is ambulatory with steady gait. No open skin noted. Fall, universal and safety prec in place. Call light within reach. Kept pt warm, dry and comfortable. All needs met. Latest COWS=2, CIWA=1. Pt aware that he will be discharged tomorrow to home. Will continue to monitor pt.
--- NOTE | 2017-02-05 20:45 | NUR ---
RN note PRN Robaxin Pt c/o generalized muscle pain=6/10. Administered Robaxin 750 mg PO as ordered. Will reassess.
[2017-02-05] MEDS: SENNOSIDES 1 TABLET PO SCH (21:00)
--- NOTE | 2017-02-05 21:50 | NUR ---
RN note reassess Per pt, current pain level=2-3/10. Robaxin effective.
[2017-02-06] VITALS: BP 126/79
[2017-02-06 04:00] VITALS: BP 118/75
--- NOTE | 2017-02-06 07:00 | NUR ---
Start of Shift Report from night nurse: pt is 26 y/o male here for Opiates dependence r/t Heroin 1g/d IV x 3 months, Benzo r/t Xanax 1mg occasionally, Etoh r/t Whiskey with a few cups per day and Marijuana 1g smoked occasionally; 5 day Subutex and 5 day Ativan tapers completed. Pt is a full code, regular diet, NKA, fall and seizure precautions ordered. HHx: smoker. V/S stable. Skin is intact. Last CIWA 1 COWS 1. PRN Robaxin given last night. New orders for the pt the be d/c'd home today with orders completed. No new labs endorsed to me. Pt is wake in room and getting ready to be d/c'd today. Will cont. to monitor the pt.
--- NOTE | 2017-02-06 07:16 | NUR ---
End of Shift Patient is a 26-year old, male, admitted for Xanax, ETOH, Heroin and Marijuana dependency. Pt with NKA, is Full Code and on Regular Diet. He denies any PMHx. Pt denies history of seizure. He is placed on 5-day Ativan and 5-day Subutex tapers, started 01/31/2017, and finished, with no adverse side effects noted. Pt is AAOx4, no anxiety nor SOB noted at this time. Pt is ambulatory with steady gait. No open skin noted. Fall, universal and safety prec in place. Call light within reach. Kept pt warm, dry and comfortable. All needs met. Latest COWS=1, CIWA=1. Pt aware that he will be discharged home today. Will continue to monitor pt.
[2017-02-06] MEDS: METHOCARBAMOL 750 MG TABLET PO PRN (08:16)
[2017-02-06] MEDS: HYDROXYZINE PAMOATE 25 MG CAPSULE PO PRN (08:16)
[2017-02-06] MEDS: GABAPENTIN 300 MG CAPSULE PO SCH (08:18)
[2017-02-06] MEDS: THIAMINE HCL 100 MG TABLET PO SCH (08:18)
[2017-02-06] MEDS: MULTIVITAMINS,THERAPEUTIC TABLET PO SCH (08:18)
--- NOTE | 2017-02-06 08:20 | NUR ---
PRN Medication Administration Pt is in room getting ready to be d/c'd today and states that he is nervous and anxious with muscle tension; PRN Vistaril 50mg and Robaxin 750mg given PO as ordered. Will reassess in 1H.
--- NOTE | 2017-02-06 09:15 | NUR ---
Discharge Pt is A&O x 4 ambulatory independently. Features symmetrical, PERRLA 3mm, no SOLORZANO or dizziness noted. Pt denies chest pain. No SOB noted. V/S stable. No w/d s/sx present. Pt is given belongings, d/c summary packet, Rx, no home medications brought. Pt is chaperoned to the lobby and d/c'd home with private transportation.
== END 2017-02-06 09:31 | disposition home or self-care (01) | DRG 895 ==
LOC: SRC 01-30
PROVIDERS: ADMIT Internal Medicine; ATTEND Internal Medicine
PROC: HZ2ZZZZ Detoxification Services for Substance Abuse Treatment (ICD-10-PCS; principal; 2017-01-30)
PROC: HZ31ZZZ Individual Counseling for Substance Abuse Treatment, Behavioral (ICD-10-PCS; 2017-01-31)
PROC: HZ41ZZZ Group Counseling for Substance Abuse Treatment, Behavioral (ICD-10-PCS; 2017-02-01)
DX: F10.230 Alcohol dependence with withdrawal, uncomplicated (principal); F11.23 Opioid dependence with withdrawal; Y90.9 Presence of alcohol in blood, level not specified; Z80.3 Family history of malignant neoplasm of breast; E07.81 Sick-euthyroid syndrome; F17.210 Nicotine dependence, cigarettes, uncomplicated; F12.90 Cannabis use, unspecified, uncomplicated; F14.10 Cocaine abuse, uncomplicated; F13.10 Sedative, hypnotic or anxiolytic abuse, uncomplicated
CPT/HCPCS: 36415; 70030-TC; 80307; 80349; 80353; 80361; 83690; 83735; 84443; 85025; 86580; 86592; 86705; 86803; 87340; 87806; A4663; G6040-TC; J3411

== ENCOUNTER 2017-08-20 16:52 | Inpatient (IN) | payer BC, OTHER ==
[~2017-08-20] VITALS: Ht 175.3 cm; Wt 77.1 kg
[~2017-08-20 16:52] MED LIST: Gabapentin PO; HYDR-3895 PO; POLY17PO4 PO; Sennosides PO
[2017-08-20] MEDS ORDERED: diphenhydrAMINE 50 MG CAPSULE PO PRN (17:45)
[2017-08-20] MEDS ORDERED: MIRALAX 17 GM POWD.PACK PO PRN (17:45)
[2017-08-20] MEDS ORDERED: MAG HYDROX/AL HYDROX/SIMETH 30 ML LIQUID UDC PO PRN (17:45)
[2017-08-20] MEDS ORDERED: CLONIDINE HCL 0.1 MG TABLET PO PRN (17:45)
[2017-08-20] MEDS ORDERED: NICOTINE 14 MG/24HR PATCH TD PRN (17:45)
[2017-08-20] MEDS ORDERED: LOPERAMIDE HCL 2 MG CAPSULE PO PRN ×2 (17:45)
[2017-08-20] MEDS ORDERED: MAGNESIUM HYDROXIDE 30 ML LIQUID UDC PO PRN (17:45)
[2017-08-20] MEDS ORDERED: LORAZEPAM 2 MG/1 ML VIAL IM PRN (17:45)
[2017-08-20] MEDS ORDERED: DICYCLOMINE HCL 20 MG TABLET PO PRN (17:45)
[2017-08-20] MEDS ORDERED: ONDANSETRON 4 MG/2 ML VIAL IM PRN (17:45)
[2017-08-20] MEDS ORDERED: BUPRENORPHINE HCL 2 MG TAB.SUBL SL PRN (17:45)
[2017-08-20] MEDS ORDERED: NICOTINE POLACRILEX 4 MG GUM-PK OF TEN BC PRN (17:45)
[2017-08-20] MEDS ORDERED: ONDANSETRON ODT 4 MG TAB.RAPDIS SL PRN (17:45)
[2017-08-20] MEDS ORDERED: LORAZEPAM 1 MG TABLET PO PRN ×2 (17:45)
[2017-08-20] MEDS ORDERED: IBUPROFEN 600 MG TABLET PO PRN (17:45)
[2017-08-20] MEDS ORDERED: METHOCARBAMOL 750 MG TABLET PO PRN (17:45)
[2017-08-20] MEDS ORDERED: ACETAMINOPHEN 325 MG TABLET PO PRN (17:45)
[2017-08-20] MEDS: LORAZEPAM 1 MG TABLET PO SCH ×2 (18:36→21:39)
[2017-08-20 18:51] LABS: *AMPHETAMINE, URINE NEGATIVE (NEGATIVE); *BARBITURATE, URINE NEGATIVE (NEGATIVE); *CANNABINOID, URINE POSITIVE (NEGATIVE); *COCCAINE, URINE NEGATIVE (NEGATIVE); *OPIATE, URINE POSITIVE (NEGATIVE); *PHENCYCLIDINE SCREEN,URINE NEGATIVE (NEGATIVE)
[2017-08-20 21:18] LABS: BASOPHILS % (AUTO) 0.6 % (0.0-2.0); EOSINOPHILS # (AUTO) 0.3 K/uL (0.0-0.7); EOSINOPHILS % (AUTO) 3.7 % (0.0-7.0); HEMATOCRIT 38.1 % (40-50); HEMOGLOBIN 12.9 G/DL (14.0-18.0); LYMPHOCYTES % (AUTO) 26.6 % (20.5-51.5); MEAN CORPUSCULAR HEMOGLOBIN 30.1 UUG (27.0-31.0); MEAN CORPUSCULAR HGB CONC 34 g/dL (32.0-37.0); MEAN CORPUSCULAR VOLUME 88.6 FL (82.0-92.0); MONOCYTES # (AUTO) 0.4 K/UL (0.1-1.30); MONOCYTES % (AUTO) 5.6 % (0.0-11.0); NEUTROPHILS # (AUTO) 4.9 K/UL (1.8-8.9); NEUTROPHILS % (AUTO) 63.5 % (38.5-71.5); PLATELET COUNT (AUTO) 283 K/UL (150-450); WHITE BLOOD COUNT (AUTO) 7.6 K/UL (4.0-11.2)
[2017-08-20 21:23] LABS: ETHANOL < 3 MG/DL (0-0)
[2017-08-20 21:25] LABS: ALANINE AMINOTRANSFERASE 36 U/L (16-63); ALKALINE PHOSPHATASE 43 U/L (50-136); ASPARTATE AMINOTRANSFERASE 27 U/L (15-37); BILIRUBIN,TOTAL 0.5 mg/dL (0.2-1.0); CARBON DIOXIDE 33 mmol/L (21-32); CHLORIDE 100 mmol/L (98-107); CREATININE 1.1 mg/dL (0.6-1.3); GLUCOSE 122 mg/dL (74-106); MAGNESIUM 2.1 mg/dL (1.8-2.4); POTASSIUM 3.4 mmol/L (3.5-5.1); UREA NITROGEN, BLOOD 14 mg/dL (7-18)
[2017-08-20] MEDS: GABAPENTIN 300 MG CAPSULE PO SCH (21:39)
[2017-08-21] VITALS: BP_SYST 106; BP_SYST 133; BP_DIAS 61; BP_DIAS 66
[2017-08-21 04:00] VITALS: BP 110/76
[2017-08-21 08:00] VITALS: BP 118/61
[2017-08-21] MEDS ORDERED: TUBERCULIN,PURIF.PROT.DERIV. 5 TU/0.1 ML TEST ID ONE (09:00)
[2017-08-21] MEDS: BUPRENORPHINE HCL 2 MG TAB.SUBL SL SCH ×2 (09:00→22:02)
[2017-08-21] MEDS: GABAPENTIN 300 MG CAPSULE PO SCH ×2 (09:27→22:02)
[2017-08-21] MEDS: LORAZEPAM 1 MG TABLET PO SCH ×3 (09:28→22:02)
[2017-08-21 12:00] VITALS: BP 127/72
[2017-08-21 16:00] VITALS: BP 115/62
[2017-08-21 20:00] VITALS: BP 125/79
[2017-08-22] VITALS: BP 133/61
[2017-08-22 04:00] VITALS: BP 125/79
[2017-08-22 08:00] VITALS: BP 121/74
[2017-08-22] MEDS: GABAPENTIN 300 MG CAPSULE PO SCH ×2 (08:14→20:17)
[2017-08-22] MEDS: LORAZEPAM 1 MG TABLET PO SCH ×3 (08:14→20:17)
[2017-08-22] MEDS: BUPRENORPHINE HCL 2 MG TAB.SUBL SL SCH ×3 (08:14→20:17)
[2017-08-22 12:00] VITALS: BP 133/85
[2017-08-22 12:05] LABS: HEPATITIS B SURFACE AG Negative (Negative)
[2017-08-22 16:00] VITALS: BP 126/65
[2017-08-22 20:00] VITALS: BP 149/92
[2017-08-23 08:00] VITALS: BP 133/74
[2017-08-23] MEDS: GABAPENTIN 300 MG CAPSULE PO SCH ×4 (08:21→20:19)
[2017-08-23] MEDS: LORAZEPAM 1 MG TABLET PO SCH ×2 (08:21→09:41)
[2017-08-23] MEDS ORDERED: BUPRENORPHINE HCL 2 MG TAB.SUBL SL SCH ×2 (09:00)
[2017-08-23] MEDS ORDERED: LORAZEPAM 1 MG TABLET PO SCH (09:00)
[2017-08-23 12:00] VITALS: BP 145/80
[2017-08-23] MEDS ORDERED: GABA-534 PO (15:15)
[2017-08-23] MEDS ORDERED: METH-406 PO (15:15)
[2017-08-23] MEDS ORDERED: DICY20TA28 PO (15:15)
[2017-08-23] MEDS ORDERED: DIPH50CA37 PO (15:15)
[2017-08-23] MEDS ORDERED: IBUP-1955 PO (15:15)
[2017-08-23 16:00] VITALS: BP 139/86
[2017-08-23 20:00] VITALS: BP 136/84
[2017-08-24] MEDS ORDERED: BUPRENORPHINE HCL 2 MG TAB.SUBL SL SCH (09:00)
[2017-08-24] MEDS ORDERED: LORAZEPAM 1 MG TABLET PO SCH (09:00)
[2017-08-24] MEDS: GABAPENTIN 300 MG CAPSULE PO SCH (09:00)
== END 2017-08-24 09:33 | disposition home or self-care (01) | DRG 895 ==
LOC: SRC 16:52
PROVIDERS: ADMIT Internal Medicine; ATTEND Internal Medicine
PROC: HZ2ZZZZ Detoxification Services for Substance Abuse Treatment (ICD-10-PCS; principal; 2017-08-20)
PROC: HZ31ZZZ Individual Counseling for Substance Abuse Treatment, Behavioral (ICD-10-PCS; 2017-08-22)
DX: F13.232 Sedative, hypnotic or anxiolytic dependence with withdrawal with perceptual disturbance (principal); E87.3 Alkalosis; F11.23 Opioid dependence with withdrawal; F10.230 Alcohol dependence with withdrawal, uncomplicated; E86.0 Dehydration; E87.6 Hypokalemia; Y90.0 Blood alcohol level of less than 20 mg/100 ml; F17.210 Nicotine dependence, cigarettes, uncomplicated; F32.9 Major depressive disorder, single episode, unspecified; Z80.3 Family history of malignant neoplasm of breast; D64.9 Anemia, unspecified; R73.9 Hyperglycemia, unspecified; F41.9 Anxiety disorder, unspecified
CPT/HCPCS: 36415; 70030-TC; 80307; 80349; 80361; 83735; 85025; 86592; 86705; 86803; 87340; 87806; G0480; Q0163

== ENCOUNTER 2023-02-03 22:16 | Emergency (ER) | payer BC, OTHER ==
[~2023-02-03] VITALS: Ht 175.3 cm; Wt 81.6 kg
[~2023-02-03 22:16] MED LIST changes: +DICY20TA2 PO; +DIPH50CA37 PO; +GABA-534 PO; -Gabapentin PO; -HYDR-3895 PO; +IBUP-1955 PO; +METH-406 PO
[2023-02-03] MEDS ORDERED: KETOROLAC TROMETHAMINE 60 MG INJ IM ONE ×2 (23:45→23:46)
[2023-02-03] MEDS ORDERED: PROCHLORPERAZINE MALEATE 5 MG TABLET PO ONE (23:45)
[2023-02-03] MEDS ORDERED: HYDROMORPHONE 1 MG/1 ML DISP.SYRIN IM ONE (23:45)
[2023-02-03] MEDS ORDERED: PROCHLORPERAZINE MALEATE 5 MG TABLET ONE (23:46)
[2023-02-03] MEDS ORDERED: HYDROMORPHONE HCL 2 MG TABLET ONE (23:47)
[2023-02-04] MEDS ORDERED: HYDR-3980 PO (00:24)
[2023-02-04 00:32] VITALS: BP 135/78
== END 2023-02-04 00:35 | disposition home or self-care (01) ==
LOC: ER 22:16
DX: M54.50 Low back pain, unspecified (principal); F17.210 Nicotine dependence, cigarettes, uncomplicated; Z71.6 Tobacco abuse counseling; Z79.1 Long term (current) use of non-steroidal anti-inflammatories (NSAID); Z79.899 Other long term (current) drug therapy
CPT/HCPCS: 99284; 96372 ×2; J1885; J8499; A4663